=== PATIENT | female | born 1990 | race Caucasian/White ===

== ENCOUNTER 2018-01-31 20:05 | Emergency (ER) | payer BC ==
[2018-01-31 20:24] VITALS: BP 119/76
--- NOTE | 2018-01-31 20:30 | UC ---
Complaint Female HPI - HPI Summary HPI Summary: 27 y/o female presents to the urgent care c/o frequency and burning noticed today. Pt reports she has Hx of UTI in the past. Pt has been drinking water, but has not taking anything to alleviate symptoms. Pt denies fever, flank pain, vaginal discharge, pelvic pain or lower back pain, abdominal pain, SOB, chest pain, N/V/D, or Hx STD's. Pt has IUD. - History Of Current Complaint Chief Complaint: UCGU Stated Complaint: BURNING URINATION Time Seen by Provider: 01/31/18 20:29 Hx Obtained From: Patient Hx Last Menstrual Period: IUD ?: No Onset/Duration: Gradual Onset, Lasting Hours - today, Still Present Timing: Intermittent, Lasting Seconds Severity Initially: Mild Severity Currently: Mild Pain Intensity: 4 Pain Scale Used: 0-10 Numeric Character: Burning Aggravating Factor(s): Urination Alleviating Factor(s): Nothing Associated Signs And Symptoms: Positive: Negative. Negative: Fever, Back Pain, Vaginal Bleeding/Discharge, Vaginal Discharge - Risk Factors Ectopic Risk Factor: Negative Ovarian Torsion Risk Factor: Negative - Allergies/Home Medications Allergies/Adverse Reactions: Allergies Allergy/AdvReac Type Severity Reaction Status Date / Time No Known Allergies Allergy Verified 04/01/13 21:15 PMH/Surg Hx/FS Hx/Imm Hx Previously Healthy: Yes - Pt denies pMHX - Surgical History Surgical History: None - Family History Family History: Hypothyrodism - Social History Occupation: Employed Full-time Lives: With Family Alcohol Use: Weekly Substance Use Type: None Smoking Status (MU): Never Smoked Tobacco Review of Systems Constitutional: Negative Skin: Negative Eyes: Negative ENT: Negative Respiratory: Negative Cardiovascular: Negative Gastrointestinal: Negative Genitourinary: Dysuria, Frequency, Urgency Motor: Negative Neurovascular: Negative Musculoskeletal: Negative Neurological: Negative Psychological: Negative Is Patient Immunocompromised?: No All Other Systems Reviewed And Are Negative: Yes Physical Exam - Summary Physical Exam Summary: VITAL SIGNS: Reviewed. GENERAL: Patient is a well developed and nourished female who is sitting comfortable in the examining table. Patient is not in any acute respiratory distress. HEAD AND FACE: No signs of trauma. No ecchymosis, hematomas or skull depressions. No sinus tenderness. EYES: PERRLA, EOMI x 2, No injected conjunctiva, clear watery eyes, no nystagmus. No photophobia. EARS: Hearing grossly intact. Ear canals and tympanic membranes are within normal limits. MOUTH: pharynx with no erythema, no exudates,no palatal petechiae. no B/L tonsillar enlargement Uvula in midline. NECK: Supple, trachea is midline, no lymphadenopathy, no JVD, no carotid bruit, no c-spine tenderness, neck with full ROM. CHEST: Symmetric, no tenderness at palpation LUNGS: Clear to auscultation bilaterally. No wheezing or crackles. CVS: Regular rate and rhythm, S1 and S2 present, no murmurs or gallops appreciated. ABDOMEN: Soft, non-tender. No signs of distention. No rebound no guarding, and no masses palpated. Bowel sounds are normal. BACK:no scoliosis or lesions, non tender to palpation, No B/L CVA tenderness EXTREMITIES: FROM in all major joints, no edema, no cyanosis or clubbing. NEURO: Alert and oriented x 3. No acute neurological deficits. Speech is normal and follows commands. SKIN: Dry and warm Triage Information Reviewed: Yes Vital Signs: Initial Vital Signs Temp 97.7 F 01/31/18 20:18 Pulse 80 01/31/18 20:18 Resp 16 01/31/18 20:18 BP 119/76 01/31/18 20:18 Pulse Ox 100 01/31/18 20:18 Complaint Female Dx - Course Course Of Treatment: 27 y/o female presents to the urgent care c/o frequency and burning noticed today. Pt reports she has Hx of UTI in the past. Pt has been drinking water, but has not taking anything to alleviate symptoms. Pt denies fever, flank pain, vaginal discharge, pelvic pain or lower back pain, abdominal pain, SOB, chest pain, N/V/D, or Hx STD's. Hx obtained. PE:WNL, UA and test ordered. UA results: Blood 1+, Leukoesterase 3+. test: negative. Pt Rx Macrobid 100mg PO x 7 days. Pyridium 100mg PO TID x 2 days. First dose given at the clinic tonight. Also Rx fluconazole since Pt develops a yeast vaginal D/c every time she takes ABx. Advised to increase fluid intake. Urine sent for culture if any abnormality Pt will be notified for further treatment. Pt advised If symptoms do not improve to return to the urgent care or f/u with PCP. Pt understood and agreed. Left the clinic ambulating. - Differential Dx/Diagnosis Differential Diagnosis/HQI/PQRI: Pelvic Inflammatory Disease, Renal Colic, Sexually Transmitted Disease, Ureteral Stone, Urinary Tract Infection Provider Diagnoses: 1- UTI. 2-Dysuria Discharge - Sign-Out/Discharge Documenting (check all that apply): Discharge/Admit/Transfer - D/c home - Discharge Plan Condition: Stable Disposition: HOME Prescriptions: Nitrofurantoin Macrocrystals* [Macrodantin 100 mg*] 100 mg PO BID #13 cap Phenazopyridine TAB* [Pyridium 100 mg TAB*] 100 mg PO TID #5 tab Patient Education Materials: Urinary Tract Infection in Women (ED), Dysuria (ED ) Referrals: [facility] [Outside] - 3 Days Additional Instructions: 1- Please take Macrobid 100mg PO x 7 days. Pyridium 100 mg PO TID x 2 days to alleviate urinary symptoms. first dose given tonight. Increase increase fluid intake. drink cranberry juice. 2-Urine sent for culture if any abnormality, you will be notified for further treatment. 3-If symptoms do not improve please return to the urgent care or f/u with her PCP. 4- Take Fluconazole PO tab as directed if your develop a yeast vaginal discharge. - Billing Disposition and Condition Condition: STABLE Disposition: HOME
[2018-01-31] MEDS ORDERED: Nitrofurantoin Macrocrystals* 50 MG CAP PO ONE (20:43)
[2018-01-31] MEDS ORDERED: Phenazopyridine TAB* 100 MG PO ONE (20:44)
[2018-01-31] MEDS ORDERED: Fluconazole 150 MG (NF) 150 MG TAB PO ONE (20:52)
[2018-01-31] MEDS ORDERED: Fluconazole 100 MG TAB* TAB ONE (21:00)
== END 2018-01-31 21:06 | disposition home or self-care (01) ==
LOC: UCEAST 20:05
DX: N39.0 Urinary tract infection, site not specified (principal); R30.0 Dysuria
CPT/HCPCS: 81003; 84702; 87086; 99202; A9270-GY; G0463

== ENCOUNTER 2018-12-13 12:03 | Emergency (ER) | payer BC ==
[2018-12-13 13:28] VITALS: BP 114/73
--- NOTE | 2018-12-13 15:09 | UC ---
FLU HPI - HPI Summary HPI Summary: 28-year-old female presents with onset of general malaise, fatigue, chills, body aches, and sore throat this morning. Associated with some mild nasal congestion. Denies fever, ear pain, dysphagia, cough, chest pain, shortness of breath, abdominal pain, nausea, vomiting, or diarrhea. - History of Current Complaint Chief Complaint: UCGeneralIllness Stated Complaint: SORE THROAT Time Seen by Provider: 12/13/18 14:49 Hx Obtained From: Patient Hx Last Menstrual Period: pt has IUD Pain Intensity: 6 - Allergy/Home Medications Allergies/Adverse Reactions: Allergies Allergy/AdvReac Type Severity Reaction Status Date / Time No Known Allergies Allergy Verified 12/13/18 13:16 Home Medications: Home Medications metroNIDAZOLE [Metronidazole] 500 mg PO BID 12/13/18 [History Confirmed 12/13/18 ] PMH/Surg Hx/FS Hx/Imm Hx Previously Healthy: Yes - Denies significant PMH - Surgical History Surgical History: Yes - oral surgery - Family History Known Family History: Positive: Non-Contributory Family History: Hypothyrodism - Social History Occupation: Employed Full-time Lives: Alone Alcohol Use: Occasionally Substance Use Type: None Smoking Status (MU): Never Smoked Tobacco - Immunization History Most Recent Tetanus Shot: UTD Review of Systems All Other Systems Reviewed And Are Negative: Yes Constitutional: Positive: Chills, Fatigue. Negative: Fever Eyes: Negative: Drainage, Eye Redness ENT: Positive: Sore Throat, Sinus Congestion - mild. Negative: Ear Ache, Sinus Pain/Tenderness Respiratory: Negative: Shortness Of Breath, Cough Cardiovascular: Negative: Palpitations, Chest Pain Gastrointestinal: Negative: Abdominal Pain, Vomiting, Diarrhea, Nausea Genitourinary: Positive: Negative Musculoskeletal: Positive: Myalgia Neurological: Positive: Negative Is Patient Immunocompromised?: No Physical Exam - Summary Physical Exam Summary: GENERAL APPEARANCE: Well developed, well nourished, alert and cooperative, and appears to be in no acute distress. EYES: Conjunctiva clear. No drainage. Vision is grossly intact. EARS: External auditory canals and tympanic membranes clear, hearing grossly intact. NOSE: Mild nasal congestion. No nasal discharge. THROAT: Mild pharyngeal erythema. No tonsilar inflammation, swelling, exudate, or lesions. Uvula midline. Oral cavity normal. Teeth and gingiva in good general condition. NECK: Neck supple, non-tender without lymphadenopathy. CARDIAC: Normal S1 and S2. No S3, S4 or murmurs. Rhythm is regular. There is no peripheral edema, cyanosis or pallor. Extremities are warm and well perfused. Capillary refill is less than 2 seconds. Peripheral pulses intact. LUNGS: Clear to auscultation without rales, rhonchi, wheezing or diminished breath sounds. ABDOMEN: Positive bowel sounds. Soft, nondistended, nontender. No guarding or rebound. No masses or hepatosplenomegally. MUSKULOSKELETAL: ROM intact to all extremities. No joint erythema or tenderness. Normal muscular development. Normal gait. SKIN: Skin normal color, texture and turgor with no lesions or eruptions. Triage Information Reviewed: Yes Vital Signs: Initial Vital Signs Temp 99.8 F 12/13/18 13:19 Pulse 98 12/13/18 13:19 Resp 18 12/13/18 13:19 BP 114/73 12/13/18 13:19 Pulse Ox 99 12/13/18 13:19 Vital Signs Reviewed: Yes Flu Course/Dx - Course Course Of Treatment: 28-year-old female presents with onset of general malaise, fatigue, chills, body aches, and sore throat this morning. Associated with some mild nasal congestion. Denies fever, ear pain, dysphagia, cough, chest pain, shortness of breath, abdominal pain, nausea, vomiting, or diarrhea. Afebrile. Vital signs stable. Exam was remarkable for mild nasal congestion and mild pharyngeal erythema without tonsillar swelling, exudate, or cervical lymphadenopathy. Rapid strep test was negative. Recommending symptomatic treatment for viral URI. She is to follow up with PCP in 7 days if symptoms do not improve. Anticipatory guidance and warning symptoms reviewed with patient. Verbalizes understanding and agrees with POC. - Differential Dx/Diagnosis Differential Diagnosis/HQI/PQRI: Bronchitis, Influenza, Pneumonia, Upper Respiratory Infection Provider Diagnosis: Viral URI Discharge - Sign-Out/Discharge Documenting (check all that apply): Patient Departure All imaging exams completed and their final reports reviewed: No Studies - Discharge Plan Condition: Stable Disposition: HOME Patient Education Materials: Upper Respiratory Infection (ED) Forms: *Work Release Referrals: Ayala Talbert MD [Primary Care Provider] - 7 Days Additional Instructions: The rapid strep test performed in the clinic today was negative. Your history and exam are consistent with a viral upper respiratory infection. Viral infections do not respond to antibiotics and are limited to the treatment of symptoms. Viral infections typically run their course in 7-10 days. Drink plenty of fluids to avoid dehydration especially if you are running any fever. Use an over the counter decongestant such as Sudafed for any congestion. Take over the counter acetaminophen (Tylenol) or ibuprofen (Advil, Motrin) according to directions as needed for pain or fever. Use salt water gargles several times a day if you have a sore throat. You may also use Chloraseptic spray or Cepacol lonzenges according to directions which contain a numbing medication and can provide some temporary relief from your sore throat. Follow up with your primary care provider in 7 days if symptoms persist. Seek immediate medical attention in the emergency room if you have fever greater than 100.5 F despite taking acetaminophen or ibuprofen, have chest pain , difficulty breathing, are unable to swallow, or have any worsening of symptoms. - Billing Disposition and Condition Condition: STABLE Disposition: Home
== END 2018-12-13 15:55 | disposition home or self-care (01) ==
LOC: UCEAST 12:03
DX: J06.9 Acute upper respiratory infection, unspecified (principal)
CPT/HCPCS: 87651; 99211; G0463